=== PATIENT | female | born 1980 | race Caucasian/White ===

== ENCOUNTER 2018-11-01 13:39 | Emergency (ER) | payer SELFPAY ==
--- OUTSIDE RECORDS SUMMARY | 2018-11-01 13:42 | XMS REPORT | Clinical Summary ---
Author Author [facility] Organization [facility] Address Unknown Phone Unavailable Care Team Providers Care Marzipan Maker Name Role Phone Sebastien Staples MD PCP Allergies No Known Allergies Medications End Date Status Medication Sig Dispensed Refills Start Date Active multivitamin with Take 1 tablet 0 minerals tablet by mouth daily. Active Problems Problem Noted Date Closed nondisplaced fracture of fifth metatarsal bone 03/10/2017 Family History Medical History Relation Name Comments Diabetes Mother Relation Name Status Comments Mother Social History Date Tobacco Use Types Packs/Day Years Used Current Every Day Smoker Cigarettes 0.25 10 Alcohol Use Drinks/Week oz/Week Comments Yes occasional Sex Assigned at Date Recorded Not on file Industry Job Start Date Occupation Not on file Not on file Not on file Travel End Travel History Travel Start No recent travel history available. Last Filed Vital Signs Not on file Plan of Treatment Health Maintenance Due Date Last Done Comments CERVICAL CANCER SCREENING 1999 INFLUENZA VACCINE 03/10/2018 Results Not on fileafter 10/31/2017 Insurance Payer Benefit Subscriber ID Type Phone Address Plan / Group [facility] [employer] xxxxxxxxxxxx PPO [employer] Advance Directives Patient has advance care planning documents on file. For more information, elida willingham contact: [facility] [address] [place] [id number]
--- NOTE | 2018-11-01 14:27 | NUR ---
PATIENT ASKED THE WAITING TIME, PATIENT WAS ADVISE OF THE TIME. PATIENT REFUSED TO WAIT AND LEFT PRIOR TO SCREEN.
== END 2018-11-01 14:27 | disposition short-term general hospital (02) ==
LOC: FSED 13:39
DX: M79.605 Pain in left leg (principal)